=== PATIENT | male | born 1965 ===

== ENCOUNTER 2021-05-08 17:23 | Emergency (ER) | payer SELFPAY ==
[~2021-05-08] VITALS: Ht 170.2 cm; Wt 63.5 kg
[2021-05-08 17:25] VITALS: BP 122/83
== END 2021-05-08 20:23 | disposition left against medical advice (07) ==
LOC: ER 17:23
DX: S61.210A Laceration without foreign body of right index finger without damage to nail, initial encounter (principal); Z53.21 Procedure and treatment not carried out due to patient leaving prior to being seen by health care provider; W26.8XXA Contact with other sharp object(s), not elsewhere classified, initial encounter; Y93.89 Activity, other specified; Y92.89 Other specified places as the place of occurrence of the external cause; Y99.8 Other external cause status